=== PATIENT | male | born 1995 | race Caucasian/White ===

== ENCOUNTER 2017-04-05 21:43 | Emergency (ER) | payer BC ==
[~2017-04-05] VITALS: Ht 188 cm; Wt 82.9 kg
[2017-04-05 21:50] VITALS: TEMP 36.8; Ht 188 cm; Wt 82.9 kg
[2017-04-05] MEDS ORDERED: BUPIVACAINE/EPINEPHRINE 0.5% 1:200,000 1.8 ML CARP INFIL ONE (22:30)
[2017-04-05] MEDS ORDERED: HYDR-5688 PO (23:11)
[2017-04-05] MEDS ORDERED: NORCO 5/325MG HOME PACK PO ONE (23:15)
[2017-04-05 23:38] VITALS: BP 122/75; PULSE 75; O2SAT 97
--- NOTE | 2017-04-07 01:09 | EMERGENCY ROOM VISIT NOTE ---
ED Visit Note First contact with patient: 21:54 Chief Complaint: I broke a tooth. History of Present Illness: Mr. Gardner is a 21-year-old white male who ambulates into the ED complaining of a tooth fracture. Patient reports approximate 30 minutes before he arrived in the emergency department he was playing broom ball; similar to a stocky, when he was struck in the mouth with a hockey pock. He reports at that time his right maxillary frontal incisors was struck with a hockey stick and broke his tooth. He reports at the time of the injury he did not have a loss of consciousness and since the injury he reports he has had no signs of head injury. Early he is complaining of right maxillary frontal incisors dental pain. He describes the pain as an achy sensation and rates his discomfort 2/10. His pain worsens when he moves the tooth or closes his mouth; he has noticed that it is slightly displaced. He has not taken any medications for pain prior to arrival at the hospital. He does report at the time of the injury there was mild bleeding but that has subsequently resolved. He denies any other associated symptoms including neck pain, other dental pain, mandibular pain, difficulty swallowing. Review of Systems: As noted above in history of present illness. 5 body systems were reviewed and found to be negative as noted above. Past Medical History: Patient denies. Current Medications: Patient denies. Allergies to Medications: Patient denies. Social History: She is currently employed; he feels safe in his home environment ; he denies tobacco use and admits to alcohol use. Tetanus Immunization Status: Patient reports up-to-date. Physical Examination: Vital Signs: Date Time Temp Pulse Resp B/P (MAP) Pulse Ox O2 Delivery O2 Flow Rate FiO2 04/05/17 23:38 75 18 122/75 97 04/05/17 21:50 36.8 81 18 147/81 98 Room Air GENERAL: 21-year-old male in mild distress due to pain, nontoxic-appearing, afebrile and hemodynamically stable. NEUROLOGICAL: Awake, alert and oriented to person, place and time. Answering questions appropriately and following commands. Normal gait. Good hand eye coordination. SKIN: Warm, dry and pink. HEENT: Atraumatic and normocephalic. No tenderness throughout the face or the mandible. Oral cavity is moist and pink. Airway is patent. Tooth #8 is fractured just inferior to the gingiva and is slightly extruded and deviated to the right. There was minimal bleeding in the area of the fracture line. I did not appreciate any exposure of the dentine or the nerve root. There was no trauma to the gingiva. Tooth #6 was loose but in its socket and not displaced. There was no bleeding around its associated gingiva. There was no malocclusion of the mandible. No other oral cavity trauma was noted. ED Course: Patient is assessed as noted above. Patient's medication list was reviewed. The mucosal associated with the involved tooth was initially anesthetized with benzocaine 20% and then 3 mL of bupivacine with epinephrine was infiltrated in the supraperiosteal area. Once anesthesia was confirmed eye placed the tooth back into position and the tooth was stabilized with periodontal paste. Patient was educated about today's findings and instructed on his treatment plan ; he verbalized understanding and agreement with this plan. Clinical Impression: Tooth fracture. Disposition: Patient discharged home in stable condition; prior to departure he was reassessed and subjectively reported he was pain-free. Plan: Patient was placed on a sliding pain medication scale of ibuprofen, acetaminophen and [place]; patient was given appropriate narcotic precautions and his name was checked on the state database and no red flags were noted. Patient was encouraged to deep his mouth clean with brushing, flossing and gargling with saltwater. Patient was encouraged use a liquid or mechanical soft diet. Patient was encouraged to follow-up with dentistry for definitive care and treatment. Patient was encouraged return ED for worsening/uncontrolled pain, uncontrolled bleeding, fevers, additional injury to the tooth or any new/concerning symptoms.
== END 2017-04-05 23:38 | disposition home or self-care (01) ==
LOC: C.EDB 21:45
DX: S02.5XXA Fracture of tooth (traumatic), initial encounter for closed fracture (principal); W21.9XXA Striking against or struck by unspecified sports equipment, initial encounter; Y93.79 Activity, other specified sports and athletics